=== PATIENT | male | born 2000 | race Caucasian/White ===

== ENCOUNTER 2022-12-17 08:20 | Inpatient (IN) ==
--- NOTE | 2022-12-17 09:03 | Emergency Department Note ---
History of Present Illness General Chief complaint: Abdominal Pain Stated complaint: PAIN IN LWR LFT ABDOMEN,DIFF WALKING Time Seen by Provider: 12/17/22 08:46 History of Present Illness Maximum Pain Intensity: 6 This is a 22-year-old male with a history of depression/anxiety currently on a regimen of Zoloft and Adderall that presents to the emergency department via private vehicle with complaints of "pain in the left lower abdomen/difficulty walking". The patient notes that this past Saturday he developed a dull ache to the left inguinal region. He denies any trauma or injury. He states that he was seen yesterday at a local urgent care and was examined. He notes that he had a scrotal examination and was informed it was likely an infection somewhere in the lower abdomen and was prescribed doxycycline. He has been taking this medication since yesterday with no change in his symptoms. He continues with symptoms therefore prompting arrival here today. Patient denies any fevers or chills. No nausea or vomiting. Patient rates his current discomfort as a 6/10 with ambulating and pain does improve it is more of a dull ache with sitting/nonmovement. Patient notes only 1 bowel movement since this past Saturday. No penile discharge or hematuria. No chest pain or shortness of breath. No recent surgery. No recent trauma. No history of blood clots. Home Medications Medication Instructions Recorded Confirmed Type dextroamphetamine sulfate 5 mg 5 mg PO DAILY PRN .. 12/17/22 12/17/22 History tablet doxycycline hyclate 100 mg capsule 100 mg PO BID 12/17/22 12/17/22 History sertraline 25 mg tablet (Zoloft) 25 mg PO DAILY 12/17/22 12/17/22 History Allergies Allergy/AdvReac Type Severity Reaction Status Date / Time No Known Allergies Allergy Unverified 12/17/22 11:59 Past Med/Surg History Medical History Anxiety and depression Surgical History No pertinent past surgical history Social History Smoking Status: Never smoker Feels Safe at Home: Yes Review of Systems A total of 10 systems reviewed and were otherwise negative Physical Exam Vital Signs Vital Signs - 24 hr 12/17/22 08:42 12/17/22 10:30 12/17/22 13:20 Temperature 36.8 C Temperature Source Temporal Artery Scan Pulse Rate 116 H 117 H Pulse Rate from SpO2 Sensor Respiratory Rate 20 18 18 Respiratory Effort / Characteristics Non-Labored Spontaneous Non-Labored Respiratory Depth Normal Normal Respiratory Pattern Regular Regular Blood Pressure 125/66 154/90 H Blood Pressure [Left Arm] 117/65 Blood Pressure Mean 85 111 Blood Pressure Mean [Left Arm] 82 Blood Pressure Position [Left Arm] Lying Pulse Oximetry 98 98 100 Oxygen Delivery Method Room Air Room Air Sepsis Recent Fever Within 48 Hours No Sepsis New/Unexplained Change in Mental Status N/A Sepsis Action Taken by Nursing No Action Required 12/17/22 13:30 12/17/22 13:30 12/17/22 13:40 Temperature Temperature Source Pulse Rate 105 H 112 H Pulse Rate from SpO2 Sensor 106 H 111 H Respiratory Rate 24 23 Respiratory Effort / Characteristics Respiratory Depth Respiratory Pattern Blood Pressure 158/79 H Blood Pressure [Left Arm] Blood Pressure Mean 105 Blood Pressure Mean [Left Arm] Blood Pressure Position [Left Arm] Pulse Oximetry 97 96 Oxygen Delivery Method Sepsis Recent Fever Within 48 Hours Sepsis New/Unexplained Change in Mental Status Sepsis Action Taken by Nursing 12/17/22 13:50 12/17/22 14:00 12/17/22 14:00 Temperature Temperature Source Pulse Rate 105 H 103 H Pulse Rate from SpO2 Sensor 105 H 105 H Respiratory Rate 19 19 Respiratory Effort / Characteristics Respiratory Depth Respiratory Pattern Blood Pressure 150/73 H Blood Pressure [Left Arm] Blood Pressure Mean 98 Blood Pressure Mean [Left Arm] Blood Pressure Position [Left Arm] Pulse Oximetry 97 98 Oxygen Delivery Method Room Air Sepsis Recent Fever Within 48 Hours Sepsis New/Unexplained Change in Mental Status Sepsis Action Taken by Nursing 12/17/22 14:10 12/17/22 14:20 12/17/22 14:30 Temperature Temperature Source Pulse Rate 107 H 108 H Pulse Rate from SpO2 Sensor 107 H 111 H Respiratory Rate 14 18 Respiratory Effort / Characteristics Respiratory Depth Respiratory Pattern Blood Pressure 123/76 Blood Pressure [Left Arm] Blood Pressure Mean 91 Blood Pressure Mean [Left Arm] Blood Pressure Position [Left Arm] Pulse Oximetry 98 98 Oxygen Delivery Method Sepsis Recent Fever Within 48 Hours Sepsis New/Unexplained Change in Mental Status Sepsis Action Taken by Nursing 12/17/22 14:30 12/17/22 14:40 12/17/22 14:50 Temperature Temperature Source Pulse Rate 108 H 103 H 112 H Pulse Rate from SpO2 Sensor 107 H 103 H 108 H Respiratory Rate 15 21 16 Respiratory Effort / Characteristics Respiratory Depth Respiratory Pattern Blood Pressure 123/76 Blood Pressure [Left Arm] Blood Pressure Mean 91 Blood Pressure Mean [Left Arm] Blood Pressure Position [Left Arm] Pulse Oximetry 98 97 97 Oxygen Delivery Method Room Air Room Air Sepsis Recent Fever Within 48 Hours Sepsis New/Unexplained Change in Mental Status Sepsis Action Taken by Nursing VITAL SIGNS - Vital signs and nursing notes were reviewed. Stable and afebrile, mildly tachycardic. GENERAL -22-year-old male appearing his stated age who is in no acute distress. Communicates well with provider and answers questions appropriately. SKIN - Without rashes. No meningeal or petechial rash. HEAD - NC/AT. EYES - PERRL with EOMI bilaterally. EARS - No deformities of external structures noted on gross examination bilater ally. NOSE - Midline and without cyanosis. MOUTH/OROPHARYNX - Without perioral cyanosis. NECK - Neck with FROM. No nuchal rigidity. LUNGS - Chest wall symmetric without accessory muscle use, intercostals retractions, or central cyanosis. Normal vesicular breath sounds CTA B/L. No wheezes, rales, or rhonchi appreciated. CARDIAC - RRR with S1/S2. No murmur, rubs, or gallops appreciated. ABDOMEN - Abdominal contour normal without pulsations or visible masses. BS normoactive all four quadrants. There is left lower quadrant abdominal tenderness to palpation. No guarding or rigidity. No palpable masses, hepatosplenomegaly, or ascites noted. EXTREMITIES - No clubbing or peripheral cyanosis. +5/5 strength noted in UE/LE bilaterally. Dorsalis pedis pulse within normal limits bilaterally. No pallor. Integument is normal in color. NEUROLOGIC - Cranial nerves II through XII grossly intact. PSYCH - A&O, and cooperates fully with examiner. Pt is very pleasant and interacts well with examiner. Course Administered Medications Heparin Sodium/Dextrose (Heparin Sodium/Dextrose) 25,000 units in 500 mls @ 21 mls/hr IV .[id number] [facility]; Protocol Stop: 01/16/23 13:29 Last Admin: 12/17/22 13:49 Dose: 1,050 units/hr, 21 mls/hr Documented By: HILARIO Co-signed By: GARRETT Discontinued Medications Heparin Sodium (Porcine) (Heparin Sod (Porcine) 1000 Unit/Ml) 5,000 units IV NOW ONE Stop: 12/17/22 13:46 Last Admin: 12/17/22 13:48 Dose: 5,000 units Documented By: HILARIO Co-signed By: GARRETT Heparin Sodium/Dextrose (Heparin Iv Adult Wt-Based Standard With Bolus Protocol) 1 each IV NOW STA; Protocol Stop: 12/17/22 13:02 Last Admin: 12/17/22 13:50 Dose: Not Given Documented By: HILARIO Ioversol (Optiray 320 500ml) 107 ml IV ONCE ONE Stop: 12/17/22 12:34 Last Admin: 12/17/22 12:24 Dose: 107 ml Documented By: ENOC Critical Care Time Critical Care Time: Yes I have personally spent about 60 minutes of critical care time in the direct management of this patient. This includes bedside care, interpretation of diagnostic studies, and testing, discussion with consultants, patient, and family members, and other required patient management activities. This 60 minutes is in excess of all separately billable procedures. Medical Decision Making Laboratory Data 12/17/22 09:06 12/17/22 09:06 Lab Results 12/17/22 12/17/22 12/17/22 Range/Units 09:06 09:06 09:06 WBC 9.59 (4.8-10.8) K/ul RBC 4.94 (4.63-6.08) M/uL Hgb 13.6 L (14.0-18.0) g/dl Hct 40.9 (40.1-51.0) % MCV 82.8 (80.0-100.0) fL MCH 27.5 (25.0-34.0) pg MCHC 33.3 (32.0-36.0) g/dL RDW Std Deviation 37.5 (36.4-46.3) fL RDW Coeff of Francisco 12.3 (11.5-14.5) % Plt Count 239 (130-400) K/uL MPV 9.4 (9.4-12.4) fL Immature Gran % (Auto) 0.2 % Neut % (Auto) 76.3 % Lymph % (Auto) 11.4 % [place] % (Auto) 9.5 % Eos % (Auto) 1.9 % Baso % (Auto) 0.7 % Neut # (Auto) 7.32 H (1.4-6.5) K/uL Lymph # (Auto) 1.09 L (1.2-3.4) K/uL [place] # (Auto) 0.91 H (0.24-0.82) K/uL Eos # (Auto) 0.18 (0-0.50) K/uL Baso # (Auto) 0.07 (0-0.2) K/uL Immature Gran # (Auto) 0.02 (0.00-0.02) K/uL PT (9.0-12.0) Seconds INR (0.9-1.1) APTT (21.0-31.0) Seconds PTT Ratio Sodium 138 (136-145) mmol/L Potassium 4.5 (3.5-5.1) mmol/L Chloride 103 (98-107) mmol/L Carbon Dioxide 27 (21-32) mmol/L Anion Gap 8 (3-11) BUN 13 (6-23) mg/dl Creatinine 1.02 (0.6-1.4) mg/dl Est Cr Clr Drug Dosing 94.6 ml/min Est GFR ( Amer) 119.5 ml/min Est GFR (Non-Af Amer) 103.1 ml/min BUN/Creatinine Ratio 12.7 (10-20) Glucose 102 H (70-99(Fasting)) mg/dl Calcium 9.8 (8.5-10.1) mg/dl Total Bilirubin 0.6 (0.2-1.0) mg/dl AST 11 L (13-39) U/L ALT 9 (7-52) U/L Alkaline Phosphatase 71 (34-104) U/L Total Protein 8.0 (6.0-8.3) gm/dl Albumin 4.9 (3.4-5.0) gm/dl Globulin 3.1 (2.5-4.0) gm/dl Albumin/Globulin Ratio 1.6 (0.9-2) Lipase < 3 L (11-82) U/L Urine Color Dark Yellow Urine Appearance Clear (Clear) Urine pH 5.5 (4.5-7.5) Ur Specific Wirt 1.030 (1.000-1.030) Urine Protein 1+ H (Negative) Urine Glucose (UA) Negative (Negative) Urine Ketones 2+ H (Negative) Urine Blood Negative (Negative) Urine Nitrite Negative (Negative) Urine Bilirubin Negative (Negative) Urine Urobilinogen Negative (Negative) Ur Leukocyte Esterase Negative (Negative) Urine WBC (Auto) 1-5 (0-5) /hpf Urine RBC (Auto) 0-4 (0-4) /hpf U Hyaline Cast (Auto) 1-5 (0-5) /lpf U Epithel Cells (Auto) 5-10 H (0-5) /lpf Urine Bacteria (Auto) Negative (Negative) SARS-CoV-2, RNA, NAAT (NEGATIVE) 12/17/22 12/17/22 Range/Units 09:06 13:30 WBC (4.8-10.8) K/ul RBC (4.63-6.08) M/uL Hgb (14.0-18.0) g/dl Hct (40.1-51.0) % MCV (80.0-100.0) fL MCH (25.0-34.0) pg MCHC (32.0-36.0) g/dL RDW Std Deviation (36.4-46.3) fL RDW Coeff of Francisco (11.5-14.5) % Plt Count (130-400) K/uL MPV (9.4-12.4) fL Immature Gran % (Auto) % Neut % (Auto) % Lymph % (Auto) % [place] % (Auto) % Eos % (Auto) % Baso % (Auto) % Neut # (Auto) (1.4-6.5) K/uL Lymph # (Auto) (1.2-3.4) K/uL [place] # (Auto) (0.24-0.82) K/uL Eos # (Auto) (0-0.50) K/uL Baso # (Auto) (0-0.2) K/uL Immature Gran # (Auto) (0.00-0.02) K/uL PT 11.0 (9.0-12.0) Seconds INR 1.0 (0.9-1.1) APTT 29.9 (21.0-31.0) Seconds PTT Ratio 1.1 Sodium (136-145) mmol/L Potassium (3.5-5.1) mmol/L Chloride (98-107) mmol/L Carbon Dioxide (21-32) mmol/L Anion Gap (3-11) BUN (6-23) mg/dl Creatinine (0.6-1.4) mg/dl Est Cr Clr Drug Dosing ml/min Est GFR ( Amer) ml/min Est GFR (Non-Af Amer) ml/min BUN/Creatinine Ratio (10-20) Glucose (70-99(Fasting)) mg/dl Calcium (8.5-10.1) mg/dl Total Bilirubin (0.2-1.0) mg/dl AST (13-39) U/L ALT (7-52) U/L Alkaline Phosphatase (34-104) U/L Total Protein (6.0-8.3) gm/dl Albumin (3.4-5.0) gm/dl Globulin (2.5-4.0) gm/dl Albumin/Globulin Ratio (0.9-2) Lipase (11-82) U/L Urine Color Urine Appearance (Clear) Urine pH (4.5-7.5) Ur Specific Wirt (1.000-1.030) Urine Protein (Negative) Urine Glucose (UA) (Negative) Urine Ketones (Negative) Urine Blood (Negative) Urine Nitrite (Negative) Urine Bilirubin (Negative) Urine Urobilinogen (Negative) Ur Leukocyte Esterase (Negative) Urine WBC (Auto) (0-5) /hpf Urine RBC (Auto) (0-4) /hpf U Hyaline Cast (Auto) (0-5) /lpf U Epithel Cells (Auto) (0-5) /lpf Urine Bacteria (Auto) (Negative) SARS-CoV-2, RNA, NAAT NEGATIVE (NEGATIVE) Imaging Data Radiologist's Impression: Abdomen/Pelvis CT 12/17/22 09:[address] WITH IV AND ORAL CONTRAST CT DOSE: HISTORY: LLQ abd pain/L inguinal region pain TECHNIQUE: Multiaxial CT images of the abdomen and pelvis were performed following the use of intravenous and oral contrast. A dose lowering technique w as utilized adhering to the principles of ALARA. COMPARISON STUDY: None. FINDINGS: Right lower lobe subsegmental pulmonary emboli are again noted. These are better appreciated on the same day chest CTA. No pneumoperitoneum. No pneumatosis. No acute fractures identified. The liver, gallbladder, pancreas, spleen, adrenal glands, and kidneys are unremarkable. No hydronephrosis. The bladder is unremarkable. Trace pelvic free fluid is noted. Trace fluid along the left paracolic gutter. No bowel wall thickening or obstruction. Normal appendix. Normal caliber abdominal aorta. The main portal vein is patent. No retroperitoneal or pelvic lymphadenopathy. Occlusive thrombus involving the left common iliac, left external iliac, and visualized left femoral arteries with surrounding edema. IMPRESSION: 1. Occlusive thrombus involving the left iliac and femoral arteries as described above. 2. Right lower lobe pulmonary emboli again noted. 3. Trace pelvic free fluid and trace fluid within the left paracolic gutter is likely reactive to the iliac thrombus. 4. No bowel wall thickening or obstruction. 5. Normal appendix. ACT 112: Negative or not required by law. Electronically signed by: Rowdy Brewster M.D. 12/17/2022 1:07 PM Scrotum Ultrasound 12/17/22 11:04 US scrotum/testicle CLINICAL HISTORY: left inguinal region pain TECHNIQUE: Real-time sonographic images of the scrotal contents were obtained. Comparison: None available at the time of this dictation. FINDINGS: The right testicle measures 4.0 x 1.7 x 2.6 cm. The left testicle measures 3.9 x 1.7 x 2[address]es are uniform in echogenicity bilaterally. Doppler flow is seen bilaterally. No focal intratesticular lesions are identified. The epididymal heads are unremarkable. There are no hydroceles. No varicoceles were seen. Incidental note is made of DVT in the left common femoral vein. Please see Doppler ultrasound performed same day for additional findings. IMPRESSION: No testicular abnormalities are seen. ACT 112: Negative or not required by law. Electronically signed by: Ezra Morris M.D. 12/17/2022 1:11 PM Venous Doppler Study 12/17/22 11:54 LEFT LOWER EXTREMITY VENOUS DOPPLER HISTORY: Acute pain and swelling of the left lower extremity L inguinal region pain COMPARISON STUDY: None. FINDINGS: Occlusive deep venous thrombus is noted within the external iliac vein extending into the common femoral vein. Additional occlusive superficial venous thrombus is noted within the proximal aspect of the greater saphenous vein. No additional DVT identified. Slow venous flow noted throughout. IMPRESSION: Likely acute deep and superficial venous thrombi as above. ACT 112: Negative or not required by law. Electronically signed by: Saad Francis M.D. 12/17/2022 12:34 PM Chest CTA 12/17/22 11:59 CT angio chest PE protocol CLINICAL HISTORY: PE TECHNIQUE: Multidetector row helical CT of the chest was performed with angiographic protocol. Coronal and sagittal reformations were obtained. Coronal and sagittal MIPS were obtained from the axial data set and were submitted for review. Automated dose lowering techniques and/or adjustment according to patient size were utilized for this exam. CT DOSE: 498.10 mGy.cm Comparison: None available at the time of this dictation. FINDINGS: Lungs and pleura: Normal. Heart and pericardium: Heart size is normal. No pericardial effusion. Vessels: Multiple scattered pulmonary emboli are seen in the segmental and subsegmental levels. Mediastinum and dana: Unremarkable. Chest wall and lower neck: Unremarkable. Abdomen: Unremarkable. Bones: Unremarkable. IMPRESSION: Multiple segmental and subsegmental pulmonary emboli are seen bilaterally. There is no evidence of right heart strain. ACT 112: Negative or not required by law. Electronically signed by: Ezra oMrris M.D. 12/17/2022 12:49 PM ADDENDUM There is a dictation error involving both the body and impression #1 the report. The left iliac and common femoral arteries are patent. However, there is occlusive thrombus involving the left common iliac, left external iliac and visualized left femoral veins with surrounding edema. This is consistent with an acute deep vein thrombus. Electronically signed by: Rowdy Brewster M.D. 12/17/2022 2:43 PM ADDENDUM END MDM Narrative Patient was seen and evaluated as above in room A11. Review was performed of nursing notes and vital signs. After obtaining a thorough history and physical examination the above work up was performed. Patient presents to us today for evaluation of left groin pain. It is reproducible with palpation to the left inguinal crease as well as the left lower quadrant. Patient otherwise clinically appears well and nontoxic. Options of care were discussed with the patient. IV access was established. Labs were drawn. There is no leukocytosis. Minor anemia noted with hemoglobin of 13.6. No emergent metabolic disturbance. Coags normal. Urinalysis without significant finding. Scrotal ultrasound was obtained pending the CT scan of the abdomen/pelvis with IV and oral contrast. Scrotal ultrasound concerning for DVT. Formal Doppler study was obtained in addition to the CT scan of the abdomen/pelvis a CT scan of the chest was also obtained noting the atypical presentation of DVT and location. Imaging as above. The patient unfortunately has multiple segmental and subsegmental pulmonary emboli bilaterally as well as acute and superficial venous thrombi of the left lower extremity and by CT scan of the abdomen/pelvis has occlusive thrombus involving left iliac and femoral veins. There is a typographical error in the report of the abdomen/pelvis and this is not involving the arteries, rather it is veins. Please see addendum above as listed by radiology. Benefit versus risk of anticoagulation discussed with the patient as well as his mother after obtaining consent and the patient called her and we spoke via speaker phone in the room. At this time it is felt that the benefit of anticoagulation outweighs risk. No contraindications identified at this time. IV heparin was started. Case then discussed with the hospitalist service. Please refer to further documentation regarding his stay. Prior to anticoagulation I did order the hyper coag blood work panel. Case was discussed with the attending physician. EKG was reviewed by myself and found to be sinus tachycardia at a rate of 102 bpm. QTc 388. QRS 84. No ST elevation. GCS: 15 In the evaluation and treatment of this patient the following differential diagnoses were entertained: DVT, diverticulitis, bowel perforation, appen dicitis, orchitis, epididymitis, strain, among others. Impression & Plan DVT (deep venous thrombosis), Pulmonary emboli, Left groin pain Discharge Plan Visit Data Chief Complaint: Abdominal Pain Stated Complaint: PAIN IN LWR LFT ABDOMEN,DIFF WALKING ED Provider: Dat Hernandez ED Midlevel Provider: Joselito Jones Discharge Problem: DVT (deep venous thrombosis), Pulmonary emboli, Left groin pain Patient Disposition: Admitted As Inpatient Condition: Good Forms Stand Alone Forms: My [employer] Prescriptions Prescriptions: No Action sertraline [Zoloft] 25 mg Tablet 25 mg PO DAILY doxycycline hyclate 100 mg capsule 100 mg PO BID dextroamphetamine sulfate 5 mg tablet 5 mg PO DAILY PRN (Reason: ..) Referrals Referrals: PCP,NO [Physician] -
[2022-12-17 09:34] LABS: Basophils # (auto) 0.07 K/uL (0-0.2); Basophils % (auto) 0.7 %; Eosinophils # (auto) 0.18 K/uL (0-0.50); Eosinophils % (auto) 1.9 %; Hematocrit (blood only) 40.9 % (40.1-51.0); Hemoglobin 13.6 g/dl (14.0-18.0); Immature Granulocytes # (auto) 0.02 K/uL (0.00-0.02); Immature Granulocytes % (auto) 0.2 %; Lymphocytes # (auto) 1.09 K/uL (1.2-3.4); Lymphocytes % (auto) 11.4 %; Mean Corpuscular Hemoglobin 27.5 pg (25.0-34.0); Mean Corpuscular Hgb Conc 33.3 g/dL (32.0-36.0); Mean Corpuscular Volume 82.8 fL (80.0-100.0); Mean Platelet Volume 9.4 fL (9.4-12.4); Monocytes # (auto) 0.91 K/uL (0.24-0.82); Monocytes % (auto) 9.5 %; Neutrophils # (auto) 7.32 K/uL (1.4-6.5); Neutrophils % (auto) 76.3 %; Platelet Count 239 K/uL (130-400); RDW Coefficient of Variation 12.3 % (11.5-14.5); RDW Standard Deviation 37.5 fL (36.4-46.3); Red Blood Count 4.94 M/uL (4.63-6.08); White Blood Count 9.59 K/ul (4.8-10.8)
[2022-12-17 09:46] LABS: Appearance Urine Clear (Clear); Bacteria Urine Automated Negative (Negative); Bilirubin Urine Negative (Negative); Blood Urine Negative (Negative); Color Urine Dark Yellow; Glucose Urine UA Negative (Negative); Ketones Urine 2+ (Negative); Leukocyte Esterase Urine Negative (Negative); Nitrite Urine Negative (Negative); Protein Urine 1+ (Negative); RBC Urine Automated 0-4 /hpf (0-4); Urobilinogen Urine Negative (Negative); pH Urine 5.5 (4.5-7.5)
[2022-12-17 10:04] LABS: Anion Gap 8 (3-11); BUN Creatinine Ratio 12.7 (10-20); Blood Urea Nitrogen 13 mg/dl (6-23); Calcium 9.8 mg/dl (8.5-10.1); Carbon Dioxide 27 mmol/L (21-32); Chloride 103 mmol/L (98-107); Creatinine Clr Calc Pharmacy 94.6 ml/min; Est GFR (African American) 119.5 ml/min; Est GFR (Non-African American) 103.1 ml/min; Glucose 102 mg/dl (70-99(Fasting)); Potassium 4.5 mmol/L (3.5-5.1); Sodium 138 mmol/L (136-145)
[2022-12-17 10:18] LABS: Alanine Aminotransferase 9 U/L (7-52); Albumin Globulin Ratio 1.6 (0.9-2); Albumin Level 4.9 gm/dl (3.4-5.0); Alkaline Phosphatase 71 U/L (34-104); Aspartate Aminotransferase 11 U/L (13-39); Bilirubin,Total 0.6 mg/dl (0.2-1.0); Globulin 3.1 gm/dl (2.5-4.0); Lipase < 3 U/L (11-82)
[2022-12-17 12:26] LABS: Partial Thromboplastin Ratio 1.1; Partial Thromboplastin Time 29.9 Seconds (21.0-31.0)
[2022-12-17] MEDS ORDERED: OPTIRAY 320 500ml IV ONE (12:33)
--- NOTE | 2022-12-17 12:35 | Ultrasound Report ---
LEFT LOWER EXTREMITY VENOUS DOPPLER HISTORY: Acute pain and swelling of the left lower extremity L inguinal region pain COMPARISON STUDY: None. FINDINGS: Occlusive deep venous thrombus is noted within the external iliac vein extending into the c ommon femoral vein. Additional occlusive superficial venous thrombus is noted within the proximal asp ect of the greater saphenous vein. No additional DVT identified. Slow venous flow noted throughout. IMPRESSION: Likely acute deep and superficial venous thrombi as above. ACT 112: Negative or not required by law. Electronically signed by: Saad Francis M.D. 12/17/2022 12:34 PM
--- NOTE | 2022-12-17 12:51 | CT Scan Report ---
CT angio chest PE protocol CLINICAL HISTORY: PE TECHNIQUE: Multidetector row helical CT of the chest was performed with angiographic protocol. Ramírez l and sagittal reformations were obtained. Coronal and sagittal MIPS were obtained from the axial timo a set and were submitted for review. Automated dose lowering techniques and/or adjustment according to patient size were utilized for this exam. CT DOSE: 498.10 mGy.cm Comparison: None available at the time of this dictation. FINDINGS: Lungs and pleura: Normal. Heart and pericardium: Heart size is normal. No pericardial effusion. Vessels: Multiple scattered pulmonary emboli are seen in the segmental and subsegmental levels. Mediastinum and dana: Unremarkable. Chest wall and lower neck: Unremarkable. Abdomen: Unremarkable. Bones: Unremarkable. IMPRESSION: Multiple segmental and subsegmental pulmonary emboli are seen bilaterally. There is no evidence of ri ght heart strain. ACT 112: Negative or not required by law. Electronically signed by: Ezra Morris M.D. 12/17/2022 12:49 PM
[2022-12-17] MEDS ORDERED: Heparin IV Adult Wt-Based Standard WITH Bolus Protocol IV STA (13:01)
--- NOTE | 2022-12-17 13:08 | CT Scan Report ---
ABDOMEN AND PELVIS CT WITH IV AND ORAL CONTRAST CT DOSE: HISTORY: LLQ abd pain/L inguinal region pain TECHNIQUE: Multiaxial CT images of the abdomen and pelvis were performed following the use of intrave nous and oral contrast. A dose lowering technique was utilized adhering to the principles of ALARA. COMPARISON STUDY: None. FINDINGS: Right lower lobe subsegmental pulmonary emboli are again noted. These are better appreciate d on the same day chest CTA. No pneumoperitoneum. No pneumatosis. No acute fractures identified. The liver, gallbladder, pancreas, spleen, adrenal glands, and kidneys are unremarkable. No hydronephrosis . The bladder is unremarkable. Trace pelvic free fluid is noted. Trace fluid along the left paracolic gutter. No bowel wall thickening or obstruction. Normal appendix. Normal caliber abdominal aorta. Th e main portal vein is patent. No retroperitoneal or pelvic lymphadenopathy. Occlusive thrombus involv ing the left common iliac, left external iliac, and visualized left femoral arteries with surrounding edema. IMPRESSION: 1. Occlusive thrombus involving the left iliac and femoral arteries as described above. 2. Right lower lobe pulmonary emboli again noted. 3. Trace pelvic free fluid and trace fluid within the left paracolic gutter is likely reactive to the iliac thrombus. 4. No bowel wall thickening or obstruction. 5. Normal appendix. ACT 112: Negative or not required by law. Electronically signed by: Rowdy Brewster M.D. 12/17/2022 1:07 PM
--- NOTE | 2022-12-17 13:13 | Ultrasound Report ---
US scrotum/testicle CLINICAL HISTORY: left inguinal region pain TECHNIQUE: Real-time sonographic images of the scrotal contents were obtained. Comparison: None available at the time of this dictation. FINDINGS: The right testicle measures 4.0 x 1.7 x 2.6 cm. The left testicle measures 3.9 x 1.7 x 2[address]es are uniform in echogenicity bilaterally. Doppler flow is seen bilaterally. No focal intratesticu lar lesions are identified. The epididymal heads are unremarkable. There are no hydroceles. No varic oceles were seen. Incidental note is made of DVT in the left common femoral vein. Please see Doppler ultrasound performed same day for additional findings. IMPRESSION: No testicular abnormalities are seen. ACT 112: Negative or not required by law. Electronically signed by: Ezra Morris M.D. 12/17/2022 1:11 PM
[2022-12-17] MEDS ORDERED: Heparin IV Adult Wt-Based Standard WITH Bolus Protocol IV SCH (13:15)
[2022-12-17] MEDS ORDERED: HEPARIN SOD (PORCINE) 1000 UNIT/ML IV ONE ×3 (13:16→20:30)
[2022-12-17] MEDS: HEPARIN SODIUM/DEXTROSE 25,000 UNITS/500 ML BAG IV SCH (13:49)
--- NOTE | 2022-12-17 14:34 | History & Physical Report ---
Date of Service December 17, 2022 Assessment & Plan (1) Pulmonary emboli: Plan: Pulmonary emboli with extensive DVT Clinically presented with pain in the left groin. Has not had any shortness of breath, does not feel chest pain or palpitations -CTA: Multiple segmental and subsegmental pulmonary bilaterally. No evidence of heart strain Venous Doppler study: Acute deep and superficial venous thrombi in left external iliac extending into common femoral vein -Scrotum ultrasound: No testicular abnormality, left common femoral DVT appreciated -CT-A/P: 1. Occlusive thrombus involving the left iliac and femoral arteries as described above.2. Right lower lobe pulmonary emboli again noted.3. Trace pelvic free fluid and trace fluid within the left paracolic gutter is likely reactive to the iliac thrombus.4. No bowel wall thickening or obstruction.5. Normal appe ndix. With sinus tachycardia. Patient has been eating poorly in the last week due to his pain and doxycycline including stomach Heparin drip started Hypercoagulability panel ordered. no known familial coagulopathy. No known antiphospholipid syndrome Patient with a 7-hour drive from [place] week preceding his DVT. Otherwise no flights, injuries, tobacco use, personal or family history of blood clots, or known cancer DOAC versus warfarin based on APS evaluation. (2) DVT (deep venous thrombosis): Plan: As otherwise noted (3) Anxiety: Plan: Continue Zoloft 25 mg daily Patient takes Adderall as needed, hold this at this time Plan DVT prophylaxis: On therapeutic anticoagulation for DVT/PE Diet: Regular Disposition: PCU given extensive clot burden CODE STATUS: Full code History of Present Illness Primary Care Provider: Lourdes Christine is seen at the bedside. He reports Saturday (6 days ago) had dull pain in he left lower abdomen. Thought he might have pulled something, but the pain gradually worsened over the week .Sat AM he went to [place] who thought he may have had an infection and placed him on doxycycline. Pain did not impove over the next 2 days, and based on non-improving symptoms he came back into the OR. Pain radiated into the low abdomen and groin overnight so wanted additional evaluation. No shortness of breath. Denies palpitations, chest pain, chest pressure. No lightheadedness, dizziness, or syncome No fevers no leg swelling Had a [address] Dec 02, no flights, no other long drives. 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 Family already updated by PA. No fhx of blood clots, strokes, PE. Possible MGF stroke in old age unsurure of the age. Medical History: Reviewed Medications: Reviewed Surgical History: Reviewed Allergies: Reviewed. NKFA. Social History: No tobacco use, rare social alchol use, no marijuana use Code Status: Full Allergies Allergy/AdvReac Type Severity Reaction Status Date / Time No Known Allergies Allergy Unverified 12/17/22 11:59 Home Medications Medication Instructions Recorded Confirmed Type sertraline 25 mg tablet (Zoloft) 25 mg PO DAILY 12/17/22 12/17/22 History Past Med/Surg History Medical History Anxiety and depression Surgical History No pertinent past surgical history Social History Smoking Status: Never smoker Feels Safe at Home: Yes Review of Systems Review of Systems: All systems reviewed & are unremarkable except as noted in HPI & below Physical Exam Physical Exam: General: A&Ox3. NAD. Cooperative. HEENT: Atraumatic, normocephalic. Vision/hearing intact Pulm: CTAB A&P. -wheezes, -rales, -rhonchi. Symmetrical chest rise. No increased work of breathing. No respiratory distress. Cardiac: regular, tachycardic, -mrg. Radial pulses intact and symmetrical. Abdominal: Nontender, nondistended, soft. BS present. Extremities: L groin tenderness. 5/5 ankle dorsi/plantarflexion, PT pulse intact bilaterally, sensation to soft touch intact in ankles bilaterally Results & Data Results & Data ([facility]) Vital Signs (Past 12 Hours) Vital Signs Temp Pulse Resp BP BP Pulse Ox O2 Del Method 12/17/22 13:50 105 H 19 97 Room Air 12/17/22 13:40 112 H 23 96 12/17/22 13:30 105 H 24 97 12/17/22 13:30 158/79 H 12/17/22 13:20 117 H 18 154/90 H 100 12/17/22 10:30 18 117/65 98 Room Air 12/17/22 08:42 36.8 C 116 H 20 125/66 98 Room Air Code Status & VTE Plan VTE Prophylaxis Plan VTE Prophylaxis will be ordered: Yes PG Care Time/CCT Total # of Minutes Spent Total Time Spent with Patient: Total time spent is greater than 50% in coordination of care (as documented) at patient's floor/unit and/or counseling patient: Coding Level of Care Code 99536 INT INP/OBS CARE 2/55MIN Diagnoses Pulmonary emboli I26.99 DVT (deep venous thrombosis) I82.409 Anxiety F41.9
[2022-12-17] MEDS ORDERED: POLYETHYLENE (MIRALAX) 17 GM PACK PO PRN (16:26)
--- NOTE | 2022-12-17 18:28 | Electrocardiogram Report ---
Test Reason : Blood Pressure : / mmHG Vent. Rate : 102 BPM Atrial Rate : 102 BPM P-R Int : 134 ms QRS Dur : 084 ms QT Int : 298 ms P-R-T Axes : 055 061 052 degrees QTc Int : 388 ms Sinus tachycardia Possible Left atrial enlargement Borderline ECG No previous ECGs available Confirmed by Ricardo Whittaker ([id number]) on 12/17/2022 6:28:10 PM Referred By: REFERRED SELF Confirmed By:Berny Whittaker
[2022-12-17 20:22] LABS: Partial Thromboplastin Ratio 1.3; Partial Thromboplastin Time 34.4 Seconds (21.0-31.0)
[2022-12-18 02:38] LABS: Basophils # (auto) 0.06 K/uL (0-0.2); Basophils % (auto) 0.7 %; Eosinophils # (auto) 0.08 K/uL (0-0.50); Eosinophils % (auto) 0.9 %; Hematocrit (blood only) 37.5 % (40.1-51.0); Hemoglobin 12.8 g/dl (14.0-18.0); Immature Granulocytes # (auto) 0.02 K/uL (0.00-0.02); Immature Granulocytes % (auto) 0.2 %; Lymphocytes % (auto) 19.8 %; Mean Corpuscular Hemoglobin 27.8 pg (25.0-34.0); Mean Corpuscular Hgb Conc 34.1 g/dL (32.0-36.0); Mean Corpuscular Volume 81.5 fL (80.0-100.0); Mean Platelet Volume 9.5 fL (9.4-12.4); Monocytes # (auto) 0.97 K/uL (0.24-0.82); Monocytes % (auto) 10.7 %; Neutrophils # (auto) 6.17 K/uL (1.4-6.5); Neutrophils % (auto) 67.7 %; Platelet Count 256 K/uL (130-400); RDW Coefficient of Variation 12.3 % (11.5-14.5); RDW Standard Deviation 36.5 fL (36.4-46.3)
[2022-12-18 02:49] LABS: Partial Thromboplastin Ratio 1.5; Partial Thromboplastin Time 41.9 Seconds (21.0-31.0)
[2022-12-18 02:57] LABS: Potassium 4.1 mmol/L (3.5-5.1)
[2022-12-18 03:03] LABS: BUN Creatinine Ratio 12.6 (10-20); Creatinine Clr Calc Pharmacy 93.7 ml/min; Est GFR (African American) 118.1 ml/min; Est GFR (Non-African American) 101.9 ml/min
--- NOTE | 2022-12-18 08:19 | Hospitalist Progress Note ---
Date of Service December 18, 2022 Assessment & Plan (1) Pulmonary emboli: Plan: Acute problem with significant risk Pulmonary emboli with extensive DVT -CTA: Multiple segmental and subsegmental pulmonary bilaterally. No evidence of heart strain Venous Doppler study: Acute deep and superficial venous thrombi in left external iliac extending into common femoral vein -Scrotum ultrasound: No testicular abnormality, left common femoral DVT appreciated -CT-A/P: 1. Occlusive thrombus involving the left iliac and femoral arteries as described above.2. Right lower lobe pulmonary emboli again noted.3. Trace pelvic free fluid and trace fluid within the left paracolic gutter is likely reactive to the iliac thrombus.4. No bowel wall thickening or obstruction.5. Normal appendix. Heparin drip started transition to Xarelto due to the possibly of once a day dosing after loading Hypercoagulability panel ordered. no known familial coagulopathy. No known antiphospholipid syndrome Patient follow-up in coagulation clinic Patient with a 7-hour drive from [place] week preceding his DVT. Otherwise no flights, injuries, tobacco use, personal or family history of blood clots, or known cancer (2) DVT (deep venous thrombosis): Plan: As otherwise noted associate with #1 still an acute problem with significant risk Significant functional decline due to pain-both parenteral and oral pain medication Left groin pain likely result of venous pressure from DVT (3) Anxiety: Plan: Chronic and stable continue Zoloft 25 mg daily Patient takes Adderall as needed, hold this at this time Plan DVT prophylaxis: On therapeutic anticoagulation for DVT/PE Diet: Regular Disposition: PCU given extensive clot burden CODE STATUS: Full code Admission and Anticipated Discharge Date Admission Date: December 17, 2022 Subjective Patient significant left groin pain worse when he stands up. Painful to even a minor touch to examination. No anatomic abnormalities were seen on CT scan Physical Exam Physical Exam: Patient wake alert appropriate heart is regular lungs are clear extremity is without significant edema may be trace edema to his left lower extremity but markedly tender in his left groin without evidence of lymphadenopathy or skin changes Results & Data Results & Data ([facility]) Vital Signs (Past 12 Hours) Vital Signs Temp Pulse Pulse Resp BP Pulse Ox O2 Del Method 12/18/22 07:00 85 12/18/22 07:03 98.4 F 96 H 15 124/74 99 Room Air 12/18/22 04:02 98.6 F 100 H 116/69 99 Room Air 12/17/22 22:00 95 H 12/18/22 00:03 99.5 F 100 H 125/76 98 Room Air Diagnostic Findings Reviewed CBC and chemistry panel on 12/18 both of been stable Given ongoing anticoagulation additional CBC and chemistry panel ordered for 12/19/2022 PG Care Time/CCT Total # of Minutes Spent Total Time Spent with Patient: Total time spent is greater than 50% in coordination of care (as documented) at patient's floor/unit and/or counseling patient: Coding Level of Care Code 16410 SUB INP/OBS CARE 3/50MIN Diagnoses Pulmonary emboli I26.99 DVT (deep venous thrombosis) I82.409 Anxiety F41.9
[2022-12-18] MEDS: PANTOprazole 40 MG TAB PO SCH (10:10)
[2022-12-18 11:07] LABS: Partial Thromboplastin Ratio 1.5; Partial Thromboplastin Time 42.4 Seconds (21.0-31.0)
[2022-12-18] MEDS: HEPARIN SODIUM/DEXTROSE 25,000 UNITS/500 ML BAG IV SCH (11:12)
[2022-12-18] MEDS: RIVAROXABAN 15 MG TAB PO SCH ×2 (13:34→22:57)
--- NOTE | 2022-12-18 14:09 | XCELERA ---
[id number]
[2022-12-18] MEDS ORDERED: MoRPHine SULFATE 2 MG/ML CARP IV PRN (17:41)
[2022-12-18] MEDS ORDERED: oxyCODONE HCL IR 5 MG TAB (IMMEDIATE RELEASE) PO PRN (17:41)
[2022-12-18] MEDS: ACETAMINOPHEN 325 MG TAB PO PRN (22:57)
[2022-12-19 07:26] LABS: Hematocrit (blood only) 38.4 % (40.1-51.0); Mean Corpuscular Hemoglobin 27.6 pg (25.0-34.0); Mean Corpuscular Hgb Conc 33.9 g/dL (32.0-36.0); Mean Corpuscular Volume 81.5 fL (80.0-100.0); Mean Platelet Volume 9.5 fL (9.4-12.4); Platelet Count 271 K/uL (130-400); RDW Coefficient of Variation 12.4 % (11.5-14.5); RDW Standard Deviation 36.7 fL (36.4-46.3); Red Blood Count 4.71 M/uL (4.63-6.08); White Blood Count 6.85 K/ul (4.8-10.8)
[2022-12-19 07:51] LABS: BUN Creatinine Ratio 12.9 (10-20); Calcium 9.6 mg/dl (8.5-10.1); Creatinine Clr Calc Pharmacy 103.6 ml/min; Est GFR (African American) 133.6 ml/min; Est GFR (Non-African American) 115.3 ml/min
[2022-12-19] MEDS: PANTOprazole 40 MG TAB PO SCH (08:39)
[2022-12-19] MEDS: RIVAROXABAN 15 MG TAB PO SCH ×2 (08:39→20:04)
--- NOTE | 2022-12-19 14:30 | Consultation ---
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 Pt with some compression of L iliac vein on imaging, but difficult to assess severity d/t current DVT. Pt without any significant edema or pain in lower leg. D/T lack of significant sx that would benefit from thrombolytic decompression of the leg, do not recommend vascular surgical intervention at this time. If he should have worsening sx in the future, such as significant chronic edema of the leg, would be happy to see this pt to consider for L ilaic vein stent placement. Recommend AC therapy. Please call if needed. (2) DVT (deep venous thrombosis): see above History of Present Illness Reason for Consultation: DVT, may thurner syndrome Attending Physician: Aristides Bradford MD History of Present Illness 22 yo m with hx of ADHD and depression, admitted with extensive proximal LLE DVT, seen in consultation today after imaging suggested possible May Thurner syndrome. 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 Shortly after his arrival home, he noted some L groin discomfort, which worsened over the next few days. Pt with L iliac to femoral vein DVT and BL PE's. No prior hx of DVT or PE. Pt unable to lift his L foot or stand on his leg d/t pain. Denies WILKINS, fever, chest pain, SOB, abd pain, N/V, rest pain, claudication, other complaitns. Allergies Allergy/AdvReac Type Severity Reaction Status Date / Time No Known Allergies Allergy Unverified 12/17/22 11:59 Home Medications Medication Instructions Recorded Confirmed Type dextroamphetamine sulfate 5 mg 5 mg PO DAILY PRN .. 12/17/22 12/17/22 History tablet doxycycline hyclate 100 mg capsule 100 mg PO BID 12/17/22 12/17/22 History sertraline 25 mg tablet (Zoloft) 25 mg PO DAILY 12/17/22 12/17/22 History rivaroxaban 15 mg (42)-20 mg (9) 1 ea PO UD #51 ea 12/18/22 Rx tablets in a starter pack (Xarelto DVT-PE Treatment 30-Day Starter) Patient History Medical History (Updated 12/19/22 @ 14:26 by Klaudia Schmidt PA-C) Anxiety and depression May-Thurner syndrome Surgical History No pertinent past surgical history Social History Smoking Status: Never smoker Hx Alcohol Use: No Hx Substance Use: No Communication Ability: Effective Memorial Counselor Required: No Beliefs That Will Affect Care: None Current Living Situation: Alone Feels Safe at Home: Yes Assistive Devices: None Review of Systems Review of Systems: All systems reviewed & are unremarkable except as noted in HPI & below Physical Exam Constitutional: WD/WN, vitals as above Neck: trachea midline Respiratory: normal respiratory effort Auscultation: lungs clear to auscultation bilaterally Cardiovascular: Rate/Rhythm: regular rate and regular rhythm Vessels: normal peripheral pulses, posterior tibial pulses present and dorsalis pedis pulses present Extremities: normal capillary refill and + edema Gastrointestinal (Abdomen): Inspection/Auscultation: abdomen normal to inspect ion and normal bowel sounds Percussion/Palpation: abdomen soft; abdomen nontender Musculoskeletal: no cyanosis or clubbing, extremities motor strength 5/5 L groin exquisitely tender to palpation, mild local edema Skin: no rashes, warm and dry Neurologic: moves all extremities and awake; no focal motor deficits and not confused Psychiatric: A+Ox3, euthymic affect Eye Contact: good eye contact Results & Data ([facility]) Vital Signs (Past 12 Hours) Vital Signs Temp Pulse Pulse Resp BP Pulse Ox O2 Del Method 12/19/22 11:00 36.9 C 12/19/22 07:00 86 12/19/22 07:09 37.0 C 93 H 17 112/72 99 Room Air 12/19/22 03:00 36.7 C 66 12 108/67 98 Room Air
--- NOTE | 2022-12-19 16:20 | Hospitalist Progress Note ---
Date of Service December 19, 2022 Assessment & Plan (1) Pulmonary emboli: Plan: Acute problem with significant risk Pulmonary emboli with extensive DVT -CTA: Multiple segmental and subsegmental pulmonary bilaterally. No evidence of heart strain Venous Doppler study: Acute deep and superficial venous thrombi in left external iliac extending into common femoral vein -Scrotum ultrasound: No testicular abnormality, left common femoral DVT appreciated -CT-A/P: 1. Occlusive thrombus involving the left iliac and femoral arteries as described above.2. Right lower lobe pulmonary emboli again noted.3. Trace pelvic free fluid and trace fluid within the left paracolic gutter is likely reactive to the iliac thrombus.4. No bowel wall thickening or obstruction.5. Normal appendix. Echocardiogram performed 12/18/2022 read as an essentially normal study with no comments of right ventricular strain or increased right heart pressures Heparin drip started transition to Xarelto due to the possibly of once a day dosing after loading Hypercoagulability panel ordered. no known familial coagulopathy. No known antiphospholipid syndrome Patient follow-up in coagulation clinic Patient with a 7-hour drive from [place] week preceding his DVT. Otherwise no flights, injuries, tobacco use, personal or family history of blood clots, or known cancer (2) DVT (deep venous thrombosis): Plan: As otherwise noted associate with #1 still an acute problem with significant risk Significant functional decline due to pain-both parenteral and oral pain medication Left groin pain likely result of venous pressure from DVT (3) Anxiety: Plan: Chronic and stable continue Zoloft 25 mg daily Patient takes Adderall as needed, hold this at this time Plan DVT prophylaxis: On therapeutic anticoagulation for DVT/PE Diet: Regular Patient's family was updated both on the and 19 December at the bedside Admission and Anticipated Discharge Date Admission Date: December 17, 2022 Subjective Patient significant left groin pain worse when he stands up. Painful to even a minor touch to examination. Results & Data Results & Data ([facility]) Vital Signs (Past 12 Hours) Vital Signs Temp Pulse Pulse Resp BP Pulse Ox O2 Del Method 12/19/22 15:03 98.6 F 99 H 17 118/77 97 Room Air 12/19/22 11:00 98.4 F 12/19/22 07:00 86 12/19/22 07:09 98.6 F 93 H 17 112/72 99 Room Air Diagnostic Findings I personally called and spoke to Dr. Amadeo Whyte guarding additional imaging study we reviewed the initial CAT scan which is initially read as unremarkable there was some concern of possible iliac vein compression by iliac artery and this necessitated a vascular surgery consultation within the and did not change his overall management and just recommended continued anticoagulation CBC reviewed and is stable Chemistry reviewed and stable During downtime of the EMR system I get a verbal report of his echocardiogram from yesterday this also shows no right heart strain or other abnormalities PG Care Time/CCT Total # of Minutes Spent Total Time Spent with Patient: Total time spent is greater than 50% in coordination of care (as documented) at patient's floor/unit and/or counseling patient: Coding Level of Care Code 41703 SUB INP/OBS CARE 235MIN Diagnoses Pulmonary emboli I26.99 DVT (deep venous thrombosis) I82.409 Anxiety F41.9
[2022-12-20] MEDS: PANTOprazole 40 MG TAB PO SCH (08:59)
[2022-12-20] MEDS: RIVAROXABAN 15 MG TAB PO SCH (08:59)
[2022-12-20] MEDS: ACETAMINOPHEN 325 MG TAB PO PRN (09:02)
--- NOTE | 2022-12-20 18:38 | Discharge Summary ---
Date of Service December 20, 2022 Admission HPI Per Admitting Provider Will is seen at the bedside. He reports Saturday (6 days ago) had dull pain in he left lower abdomen. Thought he might have pulled something, but the pain gradually worsened over the week .Sat AM he went to [facility] who thought he may have had an infection and placed him on doxycycline. Pain did not impove over the next 2 days, and based on non-improving symptoms he came back into the OR. Pain radiated into the low abdomen and groin overnight so wanted additional evaluation. No shortness of breath. Denies palpitations, chest pain, chest pressure. No lightheadedness, dizziness, or syncome No fevers no leg swelling Had a [address] Dec 02, no flights, no other long drives. 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 Family already updated by PA. No fhx of blood clots, strokes, PE. Possible MGF stroke in old age unsurure of the age. Medical History: Reviewed Medications: Reviewed Surgical History: Reviewed Allergies: Reviewed. NKFA. Social History: No tobacco use, rare social alchol use, no marijuana use Code Status: Full Principal Diagnosis acute PE with dvt Discharge Exam Head and ENT no thyroid enlargement trachea midline Cardiovascular S1-S2 are normal no S3 Lungs bilateral air entry fair no wheezing Abdomen soft nondistended positive bowel sounds no rebound tenderness Extremity shows trace edema Neurologically no focal deficits Skin shows no rash no cyanosis Discharge Data Allergies Allergy/AdvReac Type Severity Reaction Status Date / Time No Known Allergies Allergy Unverified 12/17/22 11:59 Consultations 12/17/22 14:18 ED Decision to Admit Stat 12/19/22 15:08 Consult Vascular Surgery Routine Ordered Studies 12/17/22 09:02 CT abd pelvis oral and IV con Stat 12/17/22 11:04 US scrotum/testicle Stat 12/17/22 11:54 US venous doppler LE LT Stat 12/17/22 11:59 CT angio chest PE protocol Stat Hospital Course (1) Pulmonary emboli: Acute problem with significant risk Pulmonary emboli with extensive DVT -CTA: Multiple segmental and subsegmental pulmonary bilaterally. No evidence of heart strain Venous Doppler study: Acute deep and superficial venous thrombi in left external iliac extending into common femoral vein -Scrotum ultrasound: No testicular abnormality, left common femoral DVT appreciated -CT-A/P: 1. Occlusive thrombus involving the left iliac and femoral arteries as described above.2. Right lower lobe pulmonary emboli again noted.3. Trace pelvic free fluid and trace fluid within the left paracolic gutter is likely reactive to the iliac thrombus.4. No bowel wall thickening or obstruction.5. Normal appendix. Echocardiogram performed 12/18/2022 read as an essentially normal study with no comments of right ventricular strain or increased right heart pressures Heparin drip started transition to Xarelto due to the possibly of once a day dosing after loading Hypercoagulability panel ordered. no known familial coagulopathy. No known antiphospholipid syndrome Patient follow-up in coagulation clinic Patient with a 7-hour drive from [place] week preceding his DVT. Otherwise no flights, injuries, tobacco use, personal or family history of blood clots, or known cancer (2) DVT (deep venous thrombosis): As otherwise noted associate with #1 still an acute problem with significant risk Significant functional decline due to pain-both parenteral and oral pain medication Left groin pain likely result of venous pressure from DVT (3) Anxiety: Chronic and stable continue Zoloft 25 mg daily Patient takes Adderall as needed, hold this at this time Plan Patient DC'd on Xarelto and advised to follow-up with oncology in 5 days along with PCP follow-up in 5 days Total Time Total Time Spent Total Time Spent (In Minutes): 45 Discharge Plan Discharge Items Patient Disposition: Home - Self-Care Reason For Visit: ACUTE EXTENSIVE DVT + PE Discharge Diagnosis: acute Pulmonary embolism with DVT Condition on Discharge: Good Activity: Per Instructions section Lifting: No more than 10 pounds and Wait until after follow-up appointment Bathing: No limitations Exercise/Sports: Gradually increase as tolerated Non-emergency contact: Primary Care Provider Call non-emergency contact if: your symptoms worsen Follow-up/Referrals: Lourdes Gutierres M.D. [Primary Care Provider] - Diet: Heart Healthy Addtl Attending Provider Instructions: f/u heam /onc in one week f/u pcp in one week Pending Studies at Discharge: No Stand-Alone Forms: My [facility], Smoking Cessation Medications and DC Order Prescriptions: New Xarelto DVT-PE Treat 30d Start 15 mg (42)- 20 mg (9) tablets,dose pack 1 ea PO UD Qty: 51 0RF Rx Instructions: Start up dose pack Continued sertraline [Zoloft] 25 mg Tablet 25 mg PO DAILY dextroamphetamine sulfate 5 mg tablet 5 mg PO DAILY PRN (Reason: ..) Discontinued doxycycline hyclate 100 mg capsule 100 mg PO BID Discharge Orders: Discharge Order (Routine); Ordered 12/20/22 Ordered By: Oswald Lizarraga Admission Data Admit Date/Time: 12/17/22 14:24 Attending Provider: Oswald Lizarraga Admit Provider: Hira Sinclair Primary Care Provider: Lourdes Gutierres Other Providers: Hira Sinclair ; Klaudia Schmidt Other Interventions: Discharge Summary Assessment (RN) Last Done: 12/20/22 18:26 Coding Level of Care Code HOSP INP/OBS DISCH >30 MIN Diagnoses Pulmonary emboli I26.99 DVT (deep venous thrombosis) I82.409 Anxiety F41.9
[2022-12-24 17:08] LABS: Anti-dsDNA Recombinant <1 IU/mL
[2022-12-24 22:22] LABS: Factor 5 Mutation POSITIVE
[2022-12-25 14:37] LABS: Anti Nuclear Antibody Screen POSITIVE (NEGATIVE)
[2022-12-26 00:13] LABS: Anti Cardiolipin Ab IgG <2.0 GPL-U/mL; Anti Cardiolipin Ab IgM <2.0 MPL-U/mL; Anti-Thrombin III Activity 149 % normal (80-135); B2 Glycoprotein IgG <2.0 U/mL (<20.0); B2 Glycoprotein IgM <2.0 U/mL (<20.0); PTT LA Screen 40 sec (<=40); Protein S Functional(Activity) 67 % normal (70-150)
[2022-12-26 10:45] LABS: ANA Pattern Cytoplasmic; ANA Titer 1:40 titer
== END 2022-12-20 18:55 | disposition home or self-care (01) | DRG 299 ==
LOC: EDBD → ED 08:20 → SUATTDRO 14:24 → 2S 14:24